=== PATIENT | female | born 1960 | race Caucasian/White ===

== ENCOUNTER 2018-11-11 06:06 | Day surgery (SDC) | END 2018-11-11 15:12 | disposition home or self-care (01) ==

== ENCOUNTER 2019-07-12 05:51 | Emergency (ER) | payer OTHER ==
[~2019-07-12] VITALS: Ht 165.1 cm; Wt 78.8 kg
[~2019-07-12 05:51] MED LIST: MECL12.574 PO; ONDA4TAB8 PO
[2019-07-12 05:56] VITALS: Ht 165.1 cm; Wt 78.8 kg
[2019-07-12 06:45] VITALS: BP 142/81; PULSE 59; RESP 15
== END 2019-07-12 06:45 | disposition home or self-care (01) ==
LOC: E/R 05:51
DX: R42 Dizziness and giddiness (principal); R11.0 Nausea
CPT/HCPCS: 99283